=== PATIENT | male | born 1975 | race Two or more races ===

== ENCOUNTER 2018-07-15 10:29 | Emergency (ER) | payer SELFPAY ==
[~2018-07-15] VITALS: Ht 177.8 cm; Wt 84.1 kg
[2018-07-15 11:05] VITALS: BP 165/94
[2018-07-15] MEDS ORDERED: BACITRACIN ZINC OINT 500U/GM, 0.9 GM ONE (11:43)
[2018-07-15] MEDS ORDERED: DIPH,PERTUSS(ACELL),TET VAC/PF 0.5 ML IM-VACC ONE ×2 (11:43→12:00)
== END 2018-07-15 12:10 | disposition home or self-care (01) ==
LOC: ED 12:03
DX: S81.811A Laceration without foreign body, right lower leg, initial encounter (principal); X58.XXXA Exposure to other specified factors, initial encounter; Y93.89 Activity, other specified; Y99.8 Other external cause status; Y92.009 Unspecified place in unspecified non-institutional (private) residence as the place of occurrence of the external cause
CPT/HCPCS: 90471; 90715